=== PATIENT | male | born 1945 | race Caucasian/White ===

== ENCOUNTER 2023-08-05 10:43 | Outpatient (CLI) | payer MEDICARE, BC | END 2023-08-05 10:44 | disposition home or self-care (01) | LOC: CSHCT 10:43 | PROVIDERS: ATTEND Neurological Surgery | DX: G91.2 (Idiopathic) normal pressure hydrocephalus (principal); G93.89 Other specified disorders of brain; Z98.2 Presence of cerebrospinal fluid drainage device; R94.02 Abnormal brain scan | CPT/HCPCS: 70450 ==